=== PATIENT | male | born 1950 | race Caucasian/White ===

== ENCOUNTER 2016-11-04 18:02 | Observation (INO) | payer MEDICARE ==
[~2016-11-04] VITALS: Ht 180.3 cm; Wt 96.0 kg
[2016-11-04] VITALS (10 sets, daily range): BP systolic 125–151; BP diastolic 58–72; PULSE 52–81; RESP 9–26; TEMP 97.7–98; O2SAT 88–93
--- NOTE | 2016-11-04 18:39 | PD ---
HPI Chief Complaint: Respiratory Symptoms Time Seen by Provider: 18:23 Travel History International Travel<30 days: No Contact w/Intl Traveler<30days: No Traveled to known affect area: No History of Present Illness HPI 65yo M with PMH of CAD s/p cardiac stent from [place] presents to the ED with c /o sob and chest tightness that has been worst for the last few days. States he can normally walk but feel sob after just a few steps in the last few days. Chest tightness is intermittent and midsternal. Pt went to urgent care 5 days ago for cold like symptoms and was given z-whitney, prednisone and proventil. Denies any fever, n/v, abdominal pain, focal weakness or numbness. PFSH Past Medical History High Cholesterol: Yes Diminished Hearing: No Hypertension: Yes Tetanus Vaccination: Unknown Influenza Vaccination: Yes ?: Not Past Surgical History Coronary Artery Bypass Graft: Yes (TRIPLE BYPASS) Coronary Stent: Yes Social History Alcohol Use: Yes (seldom) Tobacco Use: No Substance Use: No Allergies-Medications (Allergen,Severity, Reaction): Coded Allergies: Penicillin (Verified Allergy, Severe, HIVES, 11/04/16) Reported Meds & Prescriptions Reported Meds & Active Scripts Active Review of Systems Except as stated in HPI: all other systems reviewed are Neg Physical Exam Narrative GENERAL: 65yo M in mild distress. SKIN: Focused skin assessment warm/dry. HEAD: Atraumatic. Normocephalic. EYES: Pupils equal and round. No scleral icterus. No injection or drainage. ENT: No nasal bleeding or discharge. Mucous membranes pink and moist. NECK: Trachea midline. No JVD. CARDIOVASCULAR: Regular rate and rhythm. No murmur appreciated. RESPIRATORY: +accessory muscle use. Crackles bilateral lung base. Very mild end expiratory wheezing on right. GASTROINTESTINAL: Abdomen soft, non-tender, nondistended. Hepatic and splenic margins not palpable. MUSCULOSKELETAL: No obvious deformities. No clubbing. No cyanosis. Trace edema bilateral lower ext. NEUROLOGICAL: Awake and alert. No obvious cranial nerve deficits. Motor grossly within normal limits. Normal speech. PSYCHIATRIC: Appropriate mood and affect; insight and judgment normal. Data Data Last Documented VS Vital Signs Date Time Temp Pulse Resp B/P Pulse Ox O2 Delivery O2 Flow Rate FiO2 11/04/16 20:10 92 Room Air 11/04/16 20:00 60 18 125/61 11/04/16 19:30 97.7 Orders Complete Blood Count With Diff (11/04/16 18:31) Basic Metabolic Panel (Bmp) (11/04/16 18:31) B-Type Natriuretic Peptide (11/04/16 18:31) Act Partial Throm Time (Ptt) (11/04/16 18:31) Prothrombin Time / Inr (Pt) (11/04/16 18:31) Magnesium (Mg) (11/04/16 18:31) Ckmb (Isoenzyme) Profile (11/04/16 18:31) Troponin I (11/04/16 18:31) Blood Culture (11/04/16 18:31) Iv Access Insert/Monitor (11/04/16 18:31) Electrocardiogram (11/04/16 18:31) Ecg Monitoring (11/04/16 18:31) Oximetry (11/04/16 18:31) Oxygen Administration (11/04/16 18:31) Chest, Single Ap (11/04/16 18:31) Sodium Chloride 0.9% Flush (Ns Flush) (11/04/16 18:45) Lactic Acid Sepsis Protocol (11/04/16 18:31) Arterial Blood Gas (Abg) (11/04/16 ) CKMB (11/04/16 18:42) CKMB% (11/04/16 18:42) Methylprednisolone So Succ Inj (Solumedr (11/04/16 20:45) Albuterol-Ipratropium Neb (Duoneb Neb) (11/04/16 20:45) Admit Order (Ed Use Only) (11/04/16 20:45) Activity Bed Rest With Brp (11/04/16 20:45) Vital Signs (Adult) Q4H (11/04/16 20:45) Cardiac Rhythm .As Directed (11/04/16 20:45) ^ Notify Dr: Other .PRN (11/04/16 20:45) ^ Notify . Parameters (11/04/16 20:45) Resp Oxygen Nasal Cannula (11/04/16 ) Ckmb (Isoenzyme) Profile (11/04/16 20:45) Ckmb (Isoenzyme) Profile (11/04/16 23:45) Troponin I (11/04/16 20:45) Troponin I (11/04/16 23:45) Electrocardiogram (11/04/16 20:45) Electrocardiogram (11/04/16 23:45) ^ Obtain (11/04/16 20:45) Is Manager / Telemetry KAEL.Q8H (11/04/16 20:45) CKMB (11/04/16 21:40) CKMB% (11/04/16 21:40) CKMB (11/05/16 00:00) CKMB% (11/05/16 00:00) Labs Laboratory Tests Test 11/04/16 11/04/16 11/04/16 18:42 18:50 18:57 White Blood Count 10.8 TH/MM3 Red Blood Count 5.68 MIL/MM3 Hemoglobin 17.2 GM/DL Hematocrit 50.9 % Mean Corpuscular Volume 89.6 FL Mean Corpuscular Hemoglobin 30.3 PG Mean Corpuscular Hemoglobin 33.8 % Concent Red Cell Distribution Width 13.3 % Platelet Count 162 TH/MM3 Mean Platelet Volume 9.0 FL Neutrophils (%) (Auto) 57.9 % Lymphocytes (%) (Auto) 32.6 % Monocytes (%) (Auto) 8.2 % Eosinophils (%) (Auto) 0.8 % Basophils (%) (Auto) 0.5 % Neutrophils # (Auto) 6.3 TH/MM3 Lymphocytes # (Auto) 3.5 TH/MM3 Monocytes # (Auto) 0.9 TH/MM3 Eosinophils # (Auto) 0.1 TH/MM3 Basophils # (Auto) 0.1 TH/MM3 CBC Comment DIFF FINAL Differential Comment Prothrombin Time 11.5 SEC Prothromb Time International 1.0 RATIO Ratio Activated Partial 31.5 SEC Thromboplast Time Sodium Level 141 MEQ/L Potassium Level 4.1 MEQ/L Chloride Level 106 MEQ/L Carbon Dioxide Level 25.0 MEQ/L Anion Gap 10 MEQ/L Blood Urea Nitrogen 27 MG/DL Creatinine 1.84 MG/DL Estimat Glomerular Filtration 37 ML/MIN Rate Random Glucose 106 MG/DL Calcium Level 8.3 MG/DL Magnesium Level 2.0 MG/DL Total Creatine Kinase 156 U/L Creatine Kinase MB 1.3 NG/ML Troponin I LESS THAN 0.02 NG/ML B-Type Natriuretic Peptide 109 PG/ML Lactic Acid Level 1.6 mmol/L Blood Gas Puncture Site RT RADIAL Blood Gas Patient Temperature 98.6 Blood Gas HCO3 25 mmol/L Blood Gas Base Excess 1.4 mmol/L Blood Gas Oxygen Saturation 90 % Arterial Blood pH 7.46 Arterial Blood Partial 36 mmHg Pressure CO2 Arterial Blood Partial 64 mmHG Pressure O2 Arterial Blood Oxygen Content 22.1 Vol % Arterial Blood 2.4 % Carboxyhemoglobin Arterial Blood Methemoglobin 0.5 % Blood Gas Hemoglobin 17.4 G/DL Oxygen Delivery Device ROOM AIR Blood Gas Inspired Oxygen 21 % MDM Medical Decision Making Medical Screen Exam Complete: Yes Emergency Medical Condition: Yes Interpretation(s) EKG: NSR 80bpm. Normal axis. Q wave III. Mild ST depression diffusely I, II, aVF, V4-V6. +PVCs. Laboratory Tests Test 11/04/16 11/04/16 11/04/16 18:42 18:50 18:57 White Blood Count 10.8 TH/MM3 (4.0-11.0) Red Blood Count 5.68 MIL/MM3 (4.50-5.90) Hemoglobin 17.2 GM/DL (13.0-17.0) Hematocrit 50.9 % (39.0-51.0) Mean Corpuscular Volume 89.6 FL (80.0-100.0) Mean Corpuscular Hemoglobin 30.3 PG (27.0-34.0) Mean Corpuscular Hemoglobin 33.8 % Concent (32.0-36.0) Red Cell Distribution Width 13.3 % (11.6-17.2) Platelet Count 162 TH/MM3 (150-450) Mean Platelet Volume 9.0 FL (7.0-11.0) Neutrophils (%) (Auto) 57.9 % (16.0-70.0) Lymphocytes (%) (Auto) 32.6 % (9.0-44.0) Monocytes (%) (Auto) 8.2 % (0.0-8.0) Eosinophils (%) (Auto) 0.8 % (0.0-4.0) Basophils (%) (Auto) 0.5 % (0.0-2.0) Neutrophils # (Auto) 6.3 TH/MM3 (1.8-7.7) Lymphocytes # (Auto) 3.5 TH/MM3 (1.0-4.8) Monocytes # (Auto) 0.9 TH/MM3 (0-0.9) Eosinophils # (Auto) 0.1 TH/MM3 (0-0.4) Basophils # (Auto) 0.1 TH/MM3 (0-0.2) CBC Comment DIFF FINAL Differential Comment Prothrombin Time 11.5 SEC (9.8-11.6) Prothromb Time International 1.0 RATIO Ratio Activated Partial 31.5 SEC Thromboplast Time (24.3-30.1) Sodium Level 141 MEQ/L (136-145) Potassium Level 4.1 MEQ/L (3.5-5.1) Chloride Level 106 MEQ/L (98-107) Carbon Dioxide Level 25.0 MEQ/L (21.0-32.0) Anion Gap 10 MEQ/L (5-15) Blood Urea Nitrogen 27 MG/DL (7-18) Creatinine 1.84 MG/DL (0.60-1.30) Estimat Glomerular Filtration 37 ML/MIN (>89) Rate Random Glucose 106 MG/DL (74-106) Calcium Level 8.3 MG/DL (8.5-10.1) Magnesium Level 2.0 MG/DL (1.5-2.5) Total Creatine Kinase 156 U/L (39-308) Creatine Kinase MB 1.3 NG/ML (0.5-3.6) Troponin I LESS THAN 0.02 NG/ML (0.02-0.05) B-Type Natriuretic Peptide 109 PG/ML (0-100) Lactic Acid Level 1.6 mmol/L (0.4-2.0) Blood Gas Puncture Site RT RADIAL Blood Gas Patient Temperature 98.6 Blood Gas HCO3 25 mmol/L (22-26) Blood Gas Base Excess 1.4 mmol/L (-2-2) Blood Gas Oxygen Saturation 90 % (90-100) Arterial Blood pH 7.46 (7.380-7.420) Arterial Blood Partial 36 mmHg (38-42) Pressure CO2 Arterial Blood Partial 64 mmHG Pressure O2 (61-120) Arterial Blood Oxygen Content 22.1 Vol % (12.0-20.0) Arterial Blood 2.4 % (0-4) Carboxyhemoglobin Arterial Blood Methemoglobin 0.5 % (0-2) Blood Gas Hemoglobin 17.4 G/DL (12.0-16.0) Oxygen Delivery Device ROOM AIR Blood Gas Inspired Oxygen 21 % Last Impressions Chest X-Ray 11/04/16 1831 Signed Impressions: Service Date/Time: Friday, November 04, 2016 18:41 - CONCLUSION: No acute cardiopulmonary disease. Prashanth Ricci MD Differential Diagnosis New onset CHF vs. new onset COPD vs. ACS Narrative Course 65yo M with CAD here with sob with exertion for the last few days. States he like cold symptoms and was treated with zpak and prednisone. Pt was initially hypoxic at triage but is now 93% on RA. Pt does have some crackles and very mild wheezing so initial impression was CHF exacerbation even though pt has no history of CHF. He was a former smoker so duonebs x3 and methylprednisolone given as well. ABG showed mild respiratory alkalosis with pH 7.46 and pCO2 36. pO2 is 64 and O2 sat is 90% on RA. Hemoglobin mildly elevated at 17.2. No leukocytosis. BNP mildly elevated at 109. Troponin negative. BUN/creatinine mildly elevated but does not know baseline. Lactic acid 1.6. Pt is well appearing but feel that pt needs further evaluation with serial EKG and cardiac enzyme. Pt does have some concerning changes on EKG but does not have any chest pain currently. 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 Will admit pt to chest pain center. Diagnosis Primary Impression: Chest pain Qualified Code: R07.9 - Chest pain, unspecified type Admitting Information Admitting Physician Requests: Observation Scripts Levofloxacin (Levaquin)750 Mg [id number] Mg PO DAILY #7 TAB Ref 0 Prov:Jignesh Mills 11/05/16 Romina Serna DO Nov 04, 2016 18:39
[2016-11-04] MEDS ORDERED: SODIUM CHLORIDE 0.9% FLUSH 10 ML FLUSH IVF PRN (18:45)
--- NOTE | 2016-11-04 18:46 | RADRPT ---
EXAM DATE/TIME: 11/04/2016 18:41 [facility] COMPARISON: No previous studies available for comparison. INDICATIONS : Short of breath MEDICAL HISTORY : Hypertension. SURGICAL HISTORY : CABG. ENCOUNTER: Initial ACUITY: 1 week PAIN SCORE: 0/10 LOCATION: Chest FINDINGS: Median sternotomy wires are noted status post cardiac surgery. The pulmonary vascular pattern is nor mal. The heart and mediastinal structures are normal. The lungs are clear. CONCLUSION: No acute cardiopulmonary disease. Prashanth Ricci MD on November 04, 2016 at 18:42 Board Certified Radiologist. This report was verified electronically.
[2016-11-04 19:03] LABS: AUTOMATED NEUTROPHIL # 6.3 TH/MM3 (1.8-7.7); BASOPHIL # 0.1 TH/MM3 (0-0.2); BASOPHIL % 0.5 % (0.0-2.0); EOSINOPHIL # 0.1 TH/MM3 (0-0.4); EOSINOPHIL % 0.8 % (0.0-4.0); HEMATOCRIT 50.9 % (39.0-51.0); HEMO FLAGS DIFF FINAL; LYMPH % 32.6 % (9.0-44.0); LYMPHOCYTE # 3.5 TH/MM3 (1.0-4.8); MEAN CELL VOLUME 89.6 FL (80.0-100.0); MEAN CORPUSCULAR HEMOGLOBIN 30.3 PG (27.0-34.0); MEAN CORPUSCULAR HGB CONC 33.8 % (32.0-36.0); MONO % 8.2 % (0.0-8.0); NEUT % 57.9 % (16.0-70.0); PLATELET COUNT 162 TH/MM3 (150-450); RED BLOOD COUNT 5.68 MIL/MM3 (4.50-5.90); RED CELL DISTRIBUTION WIDTH 13.3 % (11.6-17.2); WHITE BLOOD COUNT 10.8 TH/MM3 (4.0-11.0)
[2016-11-04 19:09] LABS: BLOOD GAS BASE EXCESS 1.4 mmol/L (-2-2); BLOOD GAS CARBOXYHEMOGLOBIN 2.4 % (0-4); BLOOD GAS HCO3 25 mmol/L (22-26); BLOOD GAS METHEMOGLOBIN 0.5 % (0-2); BLOOD GAS O2 HGB SATURATION 90 % (90-100); BLOOD GAS OXYGEN CONTENT 22.1 Vol % (12.0-20.0); BLOOD GAS PCO2 36 mmHg (38-42); BLOOD GAS PO2 64 mmHG (61-120); BLOOD GAS TOTAL HGB 17.4 G/DL (12.0-16.0); CRITICAL VALUE NO; DRAW SITE RT RADIAL; FIO2 21 %; NUMBER OF ARTERIAL PUNCTURES 1; OXYGEN DEVICE ROOM AIR; STAT YES; TEMP CORR TO 98.6; ULNAR PULSE PRESENT
[2016-11-04 19:20] LABS: APTT (PATIENT) 31.5 SEC (24.3-30.1); PROTHROMBIN TIME - PATIENT 11.5 SEC (9.8-11.6)
[2016-11-04 19:25] LABS: ANION GAP 10 MEQ/L (5-15); BLOOD UREA NITROGEN 27 MG/DL (7-18); CHLORIDE 106 MEQ/L (98-107); CREATINE KINASE 156 U/L (39-308); GLOMERULAR FILTRATION RATE 37 ML/MIN (>89); POTASSIUM 4.1 MEQ/L (3.5-5.1); SODIUM (NA) 141 MEQ/L (136-145)
[2016-11-04 19:40] LABS: CKMB 1.3 NG/ML (0.5-3.6)
[2016-11-04] MEDS ORDERED: methylPREDNISolone SOD SUCC 125 MG/2 ML VIAL IVP ONE (20:45)
[2016-11-04] MEDS: RESP: ALBUTEROL 2.5 MG/IPRATROPIUM 0.5 MG NEB (SCH) INH ×2 (20:57→20:58)
[2016-11-04 22:18] LABS: CREATINE KINASE 141 U/L (39-308)
[2016-11-04 22:31] LABS: CKMB 0.9 NG/ML (0.5-3.6)
[2016-11-05 00:27] VITALS: PULSE 66
[2016-11-05 01:28] LABS: CREATINE KINASE 153 U/L (39-308)
[2016-11-05 01:39] LABS: CKMB 0.8 NG/ML (0.5-3.6)
[2016-11-05 04:01] VITALS: PULSE 54
[2016-11-05 04:30] VITALS: BP 114/59; PULSE 58; RESP 20; TEMP 97.4; O2SAT 95
[2016-11-05] MEDS ORDERED: ASPI81CH CHEW (07:32)
[2016-11-05] MEDS ORDERED: CARV6.252 PO (07:33)
[2016-11-05] MEDS ORDERED: MULT1TAB85 PO (07:34)
[2016-11-05] MEDS ORDERED: FURO20TA PO (07:34)
[2016-11-05] MEDS ORDERED: NITR0.4S SL (07:35)
[2016-11-05] MEDS ORDERED: ROSU20 PO (07:36)
[2016-11-05 08:04] VITALS: BP 142/72; PULSE 71; RESP 18; TEMP 97.7; O2SAT 93
[2016-11-05] MEDS ORDERED: RESP: ALBUTEROL 2.5 MG/IPRATROPIUM 0.5 MG NEB (SCH) INH ONE (08:15)
[2016-11-05] MEDS ORDERED: RESP: ALBUTEROL 2.5 MG/IPRATROPIUM 0.5 MG NEB (PRN) INH (08:15)
[2016-11-05 08:41] VITALS: O2SAT 96
[2016-11-05] MEDS ORDERED: ATORVASTATIN 40 MG TAB PO SCH (09:00)
[2016-11-05] MEDS ORDERED: ASPIRIN 325 MG TAB PO SCH (09:00)
[2016-11-05] MEDS ORDERED: CARVEDILOL 6.25 MG TAB PO SCH (09:00)
[2016-11-05] MEDS ORDERED: REGADENOSON INJ 0.4 MG/5 ML SYR ONE (10:20)
--- NOTE | 2016-11-05 11:38 | HHI.HP ---
HPI Primary Care Physician Non-Staff Chief Complaint Chest pain History of Present Illness This is a 65-year-old male with history of CAD stating he had a three-vessel bypass 3 and half years ago and 6 most later needing a stent. He presents with complaint of being short of breath with limited activity over last week. He's had no chest discomfort. No nausea or diaphoresis. He also states that beginning to have however began having a nonproductive cough. About a week and half ago he went to an urgent care center was placed on Zithromax, prednisone, and an inhaler. He is feeling better. The cough is almost gone however he has the shortness of breath with activity as mentioned above. He's had no fevers or chills with his cold. He was planning on going back to [place] tomorrow. 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 Patient continues to smoke cigarettes. Review of Systems General: Patient denies fevers, chills recent, and recent travel HEENT: Patient denies headache, sore throat, difficulty swallowing. Cardiovascular: Denies chest discomfort. Denies sensation of heart beating rapidly or irregularly. No syncope. Denies diaphoresis. Respiratory: Complains of shortness of breath with walking over the last week. Denies inspirational chest discomfort. Denies coughing wheezing or hemoptysis. GI: Patient denies nausea, vomiting, diarrhea, abdominal pain, bloody stools. Musculoskeletal: Patient denies joint pain or edema. Denies calf pain or edema. Neurovascular: Patient denies numbness, tingling, weakness in extremities. Denies headache. Endocrine: Denies polyuria and polydipsia. Hematologic: Denies easy bruising. Skin: Denies rash or itching. Past Family Social History Allergies: Coded Allergies: Penicillin (Verified Allergy, Severe, HIVES, 11/04/16) Past Medical History CAD with a three-vessel bypass graft years ago. Cardiac stent 6 months later. Hypertension hyperlipidemia tobacco abuse. Denies diabetes. Past Surgical History Coronary artery bypass grafting. Cardiac catheterization with stenting. Reported Medications Reported Meds & Active Scripts Active Reported Crestor (Rosuvastatin Calcium) 20 Mg Tab 20 Mg PO DAILY Nitrostat SL (Nitroglycerin) 0.4 Mg Subl 0.4 Mg SL ONCE Furosemide 20 Mg Tab 20 Mg PO DAILY Multivitamin Men (Multiple Vitamins W/ Minerals) 1 Tab Tab 1 Tab PO DAILY Carvedilol 6.25 Mg Tab 6.25 Mg PO BID Aspirin 81 Mg Chew 81 Mg CHEW DAILY Active Ordered Medications Current Medications Medications (Trade) Dose Ordered Sig/Amrit Route Start Time Stop Time Status Last Admin (NS Flush) 2 ml UNSCH PRN IVF 11/04/16 18:45 (Coreg) 6.25 mg BID PO 11/05/16 09:00 11/05/16 11:19 (Lipitor) 40 mg DAILY PO 11/05/16 09:00 11/05/16 11:19 (Aspirin) 325 mg DAILY PO 11/05/16 09:00 11/05/16 11:19 Family History Family history of CAD. Social History Patient continues to smoke cigarettes. He's been smoking about 2-3 cigarettes a day since his bypass but prior that he smoked 1/2 to one full pack of cigarettes daily for 20 years. Rarely has alcohol. Denies illicit drugs. He is . Physical Exam Vital Signs Vital Signs Date Time Temp Pulse Resp B/P Pulse Ox O2 Delivery O2 Flow Rate FiO2 11/05/16 08:41 96 High Flow Nasal Cannula 2.00 11/05/16 08:04 97.7 71 18 142/72 93 11/05/16 04:30 97.4 58 20 114/59 95 11/05/16 04:01 54 11/05/16 00:27 66 11/04/16 22:56 98.0 66 20 128/63 92 11/04/16 22:38 20 11/04/16 22:37 81 9 130/64 91 11/04/16 22:34 81 9 130/64 91 11/04/16 21:00 70 21 138/67 93 11/04/16 20:10 92 Room Air 11/04/16 20:00 60 18 125/61 92 11/04/16 19:30 97.7 52 19 134/58 92 Room Air 11/04/16 18:33 93 Room Air 11/04/16 18:33 93 Room Air 11/04/16 18:26 78 28 95 Room Air 11/04/16 18:07 26 88 11/04/16 18:06 97.8 68 22 151/72 90 Physical Exam GENERAL: This is a well-nourished, well-developed patient, in no apparent distress. Patient speaks in clear complete sentences. Patient is pleasant. HEENT: Head is atraumatic and normocephalic. Neck is supple without lymphadenopathy and trachea is midline. No JVD or carotid bruits. CARDIOVASCULAR: Regular rate and rhythm without murmurs, gallops, or rubs. RESPIRATORY: Clear to auscultation. Breath sounds equal bilaterally. No wheezes , rales, or rhonchi. Chest wall is nontender. No use of accessory muscles. GASTROINTESTINAL: Abdomen is nontender, nondistended. Abdomen soft. No obvious pulsatile mass or bruit. No CVA tenderness. Strong femoral pulses bilaterally. Normal bowel sounds in all quadrants. MUSCULOSKELETAL: Patient is moving upper and lower extremities freely. No calf tenderness or edema, no Homans sign. Strong pulses in upper and lower extremities. NEUROLOGICAL: Patient is alert and oriented. Cranial nerves 2-12 are grossly intact. No focal deficits and speech is clear. SKIN: No rash and turgor is normal. Laboratory Laboratory Tests Test 11/04/16 11/04/16 11/04/16 11/04/16 18:42 18:50 18:57 21:40 White Blood Count 10.8 Red Blood Count 5.68 Hemoglobin 17.2 Hematocrit 50.9 Mean Corpuscular Volume 89.6 Mean Corpuscular Hemoglobin 30.3 Mean Corpuscular Hemoglobin 33.8 Concent Red Cell Distribution Width 13.3 Platelet Count 162 Mean Platelet Volume 9.0 Neutrophils (%) (Auto) 57.9 Lymphocytes (%) (Auto) 32.6 Monocytes (%) (Auto) 8.2 Eosinophils (%) (Auto) 0.8 Basophils (%) (Auto) 0.5 Neutrophils # (Auto) 6.3 Lymphocytes # (Auto) 3.5 Monocytes # (Auto) 0.9 Eosinophils # (Auto) 0.1 Basophils # (Auto) 0.1 CBC Comment DIFF FINAL Differential Comment Prothrombin Time 11.5 Prothromb Time International 1.0 Ratio Activated Partial 31.5 Thromboplast Time Sodium Level 141 Potassium Level 4.1 Chloride Level 106 Carbon Dioxide Level 25.0 Anion Gap 10 Blood Urea Nitrogen 27 Creatinine 1.84 Estimat Glomerular Filtration 37 Rate Random Glucose 106 Calcium Level 8.3 Magnesium Level 2.0 Total Creatine Kinase 156 141 Creatine Kinase MB 1.3 0.9 Troponin I LESS THAN 0.02 LESS THAN 0.02 B-Type Natriuretic Peptide 109 Lactic Acid Level 1.6 Blood Gas Puncture Site RT RADIAL Blood Gas Patient Temperature 98.6 Blood Gas HCO3 25 Blood Gas Base Excess 1.4 Blood Gas Oxygen Saturation 90 Arterial Blood pH 7.46 Arterial Blood Partial 36 Pressure CO2 Arterial Blood Partial 64 Pressure O2 Arterial Blood Oxygen Content 22.1 Arterial Blood 2.4 Carboxyhemoglobin Arterial Blood Methemoglobin 0.5 Blood Gas Hemoglobin 17.4 Oxygen Delivery Device ROOM AIR Blood Gas Inspired Oxygen 21 Test 11/05/16 00:00 Total Creatine Kinase 153 Creatine Kinase MB 0.8 Troponin I LESS THAN 0.02 Date/Time Procedure Status Source Growth 11/04/16 18:55 Aerobic Blood Culture - Preliminary Resulted Blood Peripheral NO GROWTH IN 1 DAY 11/04/16 18:55 Anaerobic Blood Culture - Preliminary Resulted Blood Peripheral NO GROWTH IN 1 DAY 11/04/16 18:31 Aerobic Blood Culture Received Blood Peripheral Pending 11/04/16 18:31 Anaerobic Blood Culture Received Blood Peripheral Pending Result Diagram: 11/04/16 1842 11/04/16 1842 Imaging Last Impressions Chest X-Ray 11/04/16 1831 Signed Impressions: Service Date/Time: Friday, November 04, 2016 18:41 - CONCLUSION: No acute cardiopulmonary disease. Prashanth Ricci MD Course EKGs a sinus rhythm with PVCs. No significant ST segment depressions or elevations. Assessment and Plan Assessment and Plan * Dyspnea: Patient complains of shortness of breath. Denies chest discomfort. Patient had serial cardiac enzymes and EKGs for ruling out purposes. He was seen by Dr. Rice cardiology in the chest pain center. He will undergo a Lexiscan likely be discharged home if the stress test were to be nonischemic. * Bronchitis: We'll prescribe Levaquin. * CAD: We'll reassess with stress testing. Continue current medications. * Hypertension: Continue current medication. * Hyperlipidemia: Continue current medication. * Tobacco abuse: Patient has been counseled on the importance of smoking cessation. Jignesh Mills Nov 05, 2016 11:38
[2016-11-05 11:45] VITALS: BP 113/56; PULSE 58; RESP 18; TEMP 97.7; O2SAT 90
--- NOTE | 2016-11-05 11:53 | RADRPT ---
EXAM DATE/TIME: 11/05/2016 09:47 [facility] COMPARISON: CHEST SINGLE AP, November 04, 2016, 18:41. INDICATIONS : Midsternal chest pain with dyspnea for a few days. Angina. DOSE: 25.9 mCi Tc99m Myoview at stress. 8.4 mCi Tc99m Myoview at rest. 0.4 mg Lexiscan STRESS SYMPTOMS: Shortness of breath. EJECTION FRACTION: 59% MEDICAL HISTORY : Myocardial infarction. Hypertension. SURGICAL HISTORY : CABG Coronary artery stent. ENCOUNTER: Initial ACUITY: 4 - 6 days PAIN SCALE: 5/10 LOCATION: Midsternal chest TECHNIQUE: The patient underwent pharmacologic stress with infusion of prescribed dose. Continuous ECG tracing was monitored during stress. Gated SPECT imaging was performed after stress and conventional SPECT i maging was performed at rest. The examination was performed on a SPECT/CT scanner, both attenuation and non-corrected datasets were reviewed. FINDINGS: DISTRIBUTION: The maximum perfused segment at stress is in the anterior wall. PERFUSION STUDY: There is a moderate sized fixed perfusion defect in the inferior wall. Small moderate severity revers ible perfusion defect in the lateral anterior wall. GATED STUDY: There is intact wall motion and thickening without hypokinetic or dyskinetic segments. CONCLUSION: 1. Small reversible perfusion defect of the lateral anterior wall indicating possible ischemic segmen t. 2. Moderate sized fixed perfusion defect in the inferior wall. 3. Mild inferior and septal wall hypokinesis. RISK CATEGORY: 2- Intermediate Risk. Richard Pascal MD on November 05, 2016 at 11:42 Board Certified Radiologist. This report was verified electronically.
[2016-11-05] MEDS ORDERED: LEVA750T PO (12:39)
--- NOTE | 2016-11-05 12:40 | HHI.DCPOC ---
Discharge Care Plan Diagnosis: (1) Chest pain (2) Bronchitis (3) CAD (coronary artery disease) (4) Hx of CABG (5) H/O heart artery stent (6) Hypertension (7) Hyperlipidemia (8) Tobacco abuse Goals to Promote Your Health * To prevent worsening of your condition and complications * To maintain your health at the optimal level Directions to Meet Your Goals Take your medications as prescribed Follow your dietary instruction Follow activity as directed Keep your appointments as scheduled Take your immunizations and boosters as scheduled If your symptoms worsen call your PCP, if no PCP go to Urgent Care Center or Emergency Room Smoking is Dangerous to Your Health. Avoid second hand smoke Call the 24-hour hour crisis hotline for domestic abuse at Jignesh Mills Nov 05, 2016 12:40
--- NOTE | 2016-11-05 14:27 | EKG ---
Date Performed: 11/05/2016 Time Performed: 07:35:06 PTAGE: 65 years EKG: SINUS BRADYCARDIA POSSIBLE INFERIOR MYOCARDIAL INFARCTION BORDERLINE ECG Since PREVIOUS TRACING , no significant change noted PREVIOUS TRACIN11/05/2016 00.10 DOCTOR: Joseline Rice Interpretating Date/Time 11/05/2016 14:25:36
--- NOTE | 2016-11-05 14:29 | EKG ---
Date Performed: 11/05/2016 Time Performed: 00:10:15 PTAGE: 65 years EKG: Sinus rhythm WITH OCCASIONAL VENTRICULAR PREMATURE COMPLEXES POSSIBLE INFERIOR MYOCARDIAL INFARCTION MODERATE T-W AVE ABNORMALITY, CONSIDER ANTEROLATERAL ISCHEMIA ABNORMAL ECG Since PREVIOUS TRACING , no significant change noted PREVIOUS TRACIN11/04/2016 21.55 DOCTOR: Joseline Rice Interpretating Date/Time 11/05/2016 14:27:39
--- NOTE | 2016-11-05 14:30 | EKG ---
Date Performed: 11/04/2016 Time Performed: 21:55:59 PTAGE: 65 years EKG: Sinus rhythm ARM LEADS REVERSED ATYPICAL ECG Since PREVIOUS TRACING , no significant change noted PREVIOUS TRACIN11/04/2016 18.41 DOCTOR: Joseline Rice Interpretating Date/Time 11/05/2016 14:28:48
--- NOTE | 2016-11-05 14:34 | EKG ---
Date Performed: 11/04/2016 Time Performed: 18:41:00 PTAGE: 65 years EKG: Sinus rhythm WITH FREQUENT VENTRICULAR PREMATURE COMPLEXES POSSIBLE LEFT ATRIAL ENLARGEMENT POSSIBLE INFERIOR ALESIA CARDIAL INFARCTION ABNORMAL RHYTHM ECG Since previous tracing, no significant change noted NO PREVIOUS TRACING DOCTOR: Joseline Rice Interpretating Date/Time 11/05/2016 14:34:08
--- NOTE | 2016-11-05 14:40 | TR ---
Date Performed: 11/05/2016 Time Performed: 10:24:06 DOCTOR: Joseline Rice DRUG LIST: CLINICAL HISTORY: REASON FOR TEST: CHEST PAIN REASON FOR ENDING: OBSERVATION: CONCLUSION: Lexiscan stress test was performed under standard four minute protocol. Radionuclid e was injected one minute prior to ending the test. No electrocardiographic abormalities were present to suggest ischemia. Nuclear imaging and interpretation are pending. COMMENTS:
== END 2016-11-05 13:53 | disposition home or self-care (01) ==
LOC: NEPA 18:02 → NEDA 20:47 → NEPFCDU 22:51
PROVIDERS: ADMIT Internal Medicine Cardiovascular Disease; ATTEND Internal Medicine Cardiovascular Disease
DX: R07.89 Other chest pain (principal); I25.10 Atherosclerotic heart disease of native coronary artery without angina pectoris; I10 Essential (primary) hypertension; J40 Bronchitis, not specified as acute or chronic; E78.00 Pure hypercholesterolemia, unspecified; E78.5 Hyperlipidemia, unspecified; F17.210 Nicotine dependence, cigarettes, uncomplicated; Z95.5 Presence of coronary angioplasty implant and graft; Z88.0 Allergy status to penicillin; Z95.1 Presence of aortocoronary bypass graft; Z79.82 Long term (current) use of aspirin
CPT/HCPCS: 36600; 71010; 78452; 80048; 82550; 82552; 82805; 83605; 83735; 83880; 84484; 85025; 85610; 85730; 87040; 93005; 93017; 94640; 94664; 99285; A9502; G0378; J2785; J2930